=== PATIENT | female | born 1970 | race Two or more races ===

== ENCOUNTER → 2020-01-24 | Outpatient (CLI) | payer OTHER | END | disposition home or self-care (01) | LOC: RAD 14:19 | DX: M46.92 Unspecified inflammatory spondylopathy, cervical region (principal) ==

== ENCOUNTER 2024-08-16 14:26 | Outpatient (CLI) | payer OTHER | END 2024-08-16 15:00 | disposition home or self-care (01) | LOC: MRI 14:26 | PROVIDERS: ATTEND Radiology Diagnostic Radiology | DX: M25.562 Pain in left knee (principal) | CPT/HCPCS: 73721 ==